=== PATIENT | male | born 1950 | race Caucasian/White ===

== ENCOUNTER 2018-03-10 09:31 | Outpatient (CLI) | payer MEDICARE, OTHER ==
[~2018-03-10 09:31] MED LIST: HYDR-569 PO
== END 2018-03-10 10:23 | disposition home or self-care (01) ==
LOC: ORTHO 09:31
PROVIDERS: ATTEND Nurse Practitioner Family
DX: S52.501A Unspecified fracture of the lower end of right radius, initial encounter for closed fracture (principal); F17.210 Nicotine dependence, cigarettes, uncomplicated; I10 Essential (primary) hypertension; Z59.0 Homelessness; Z88.0 Allergy status to penicillin; X58.XXXA Exposure to other specified factors, initial encounter; Y93.89 Activity, other specified; Y92.89 Other specified places as the place of occurrence of the external cause; Y99.8 Other external cause status
CPT/HCPCS: 99213; A4590; A6449

== ENCOUNTER 2018-03-21 14:42 | Outpatient (CLI) | payer MEDICARE, OTHER ==
[2018-03-21 15:09] VITALS: BP 131/92
== END 2018-03-21 15:45 | disposition home or self-care (01) ==
LOC: ORTHO 14:42
PROVIDERS: ATTEND Nurse Practitioner Family
DX: S52.501G Unspecified fracture of the lower end of right radius, subsequent encounter for closed fracture with delayed healing (principal); S50.819D Abrasion of unspecified forearm, subsequent encounter; F17.210 Nicotine dependence, cigarettes, uncomplicated; Z59.0 Homelessness; Z88.0 Allergy status to penicillin; X58.XXXD Exposure to other specified factors, subsequent encounter
CPT/HCPCS: 73110; 99214; A4590

== ENCOUNTER 2018-03-29 13:27 | Outpatient (CLI) | payer MEDICARE, OTHER ==
[~2018-03-29] VITALS: Ht 162.6 cm; Wt 94.6 kg
[2018-03-29 13:27] VITALS: BP 129/84
== END 2018-03-29 14:47 | disposition home or self-care (01) ==
LOC: ORTHO 13:27
PROVIDERS: ATTEND Nurse Practitioner Family
DX: S52.501G Unspecified fracture of the lower end of right radius, subsequent encounter for closed fracture with delayed healing (principal); M25.431 Effusion, right wrist; E78.00 Pure hypercholesterolemia, unspecified; F17.210 Nicotine dependence, cigarettes, uncomplicated; G89.29 Other chronic pain; I10 Essential (primary) hypertension; M10.9 Gout, unspecified; Z88.0 Allergy status to penicillin; X58.XXXD Exposure to other specified factors, subsequent encounter
CPT/HCPCS: 73110; 99215

== ENCOUNTER 2021-01-16 11:03 | Emergency (ER) | payer MEDICARE, OTHER ==
[~2021-01-16] VITALS: Ht 162.6 cm; Wt 84.1 kg
[~2021-01-16 11:03] MED LIST changes: +FOLI0.4T6 PO; -HYDR-569 PO; +KETO10TA2 PO; +LEVO750T46 PO; +LISI40TA13 PO; +MULT-1074 PO; +NICO-687 TD; +THIA100T70 PO
[2021-01-16 12:18] LABS: BASOPHILS # (AUTO) 0.1 X10'3 (0-0.2); BASOPHILS % (AUTO) 0.8 % (0-1); EOSINOPHILS # (AUTO) 0.2 X10'3 (0-0.9); EOSINOPHILS % (AUTO) 2.2 % (0-6); HEMATOCRIT 47.4 % (42.0-52.0); LYMPHOCYTES # (AUTO) 2.1 X10'3 (1.1-4.8); LYMPHOCYTES % (AUTO) 21.7 % (21-51); MEAN CORPUSCULAR HEMOGLOBIN 31.7 PG (27.0-31.0); MEAN CORPUSCULAR HGB CONC 33.7 g/dL (33.0-36.5); MEAN PLATELET VOLUME 8.7 FL (7.4-10.4); MONOCYTES # (AUTO) 0.9 X10'3 (0-0.9); MONOCYTES % (AUTO) 9.3 % (2-12); NEUTROPHILS # (AUTO) 6.2 X10'3 (1.8-7.7); PLATELET COUNT 321 X10'3 (140-440); RED BLOOD COUNT 5.04 X10'6 (4.70-6.10); RED CELL DISTRIBUTION WIDTH 14.1 % (11.5-14.5); WHITE BLOOD COUNT 9.4 X10'3 (4.5-11.0)
[2021-01-16 12:29] LABS: D-DIMER 2.26 MG/L FEU (0-0.50)
[2021-01-16 12:31] LABS: ALANINE AMINOTRANSFERASE 50 U/L (12-78); ALBUMIN 3.3 G/DL (3.4-5.0); ALBUMIN/GLOBULIN RATIO 0.6 (1.1-1.5); ALKALINE PHOSPHATASE 127 IU/L (46-116); ANION GAP 12 (8-16); ASPARTATE AMINO TRANSFERASE 37 U/L (10-37); BILIRUBIN,TOTAL 0.6 MG/DL (0.1-1.0); BLOOD UREA NITROGEN 14 MG/DL (7-18); BUN/CREATININE RATIO 13.5 (5.4-32.0); CALCIUM 9.5 MG/DL (8.5-10.1); CHLORIDE 102 MMOL/L (99-107); CREATININE 1.04 MG/DL (0.60-1.10); GLUCOSE 97 MG/DL (70-104); POTASSIUM 4.3 MMOL/L (3.5-5.1); SODIUM 137 MMOL/L (135-145); TOTAL CARBON DIOXIDE 22.7 MMOL/L (24-32); TOTAL PROTEIN 8.7 G/DL (6.4-8.2); eGFR 71 ML/MIN
[2021-01-16 12:39] LABS: PLATELET ESTIMATE NORMAL; TOTAL CELLS COUNTED 100
[2021-01-16] MEDS ORDERED: HYDROcodone/acetaminophen 10/325mg tab PO ONE (13:00)
[2021-01-16 13:27] VITALS: BP 150/95
== END 2021-01-16 13:17 | disposition home or self-care (01) ==
LOC: ER 11:04
DX: R07.81 Pleurodynia (principal); R05 Cough; R06.02 Shortness of breath; E78.00 Pure hypercholesterolemia, unspecified; I10 Essential (primary) hypertension; G89.29 Other chronic pain; M10.9 Gout, unspecified; F12.90 Cannabis use, unspecified, uncomplicated; F15.90 Other stimulant use, unspecified, uncomplicated; Z86.19 Personal history of other infectious and parasitic diseases; Z98.890 Other specified postprocedural states; Z72.89 Other problems related to lifestyle; Z88.0 Allergy status to penicillin; Z79.899 Other long term (current) drug therapy
CPT/HCPCS: 36415; 80053; 85007; 85025; 85379; 93005; 99284

== ENCOUNTER 2021-06-12 01:34 | Emergency (ER) | payer MEDICARE ==
[~2021-06-12] VITALS: Ht 162.6 cm; Wt 76.0 kg
[~2021-06-12 01:34] MED LIST changes: -FOLI0.4T6 PO; -LEVO750T46 PO; -LISI40TA13 PO
[2021-06-12 01:41] VITALS: BP 151/92
[2021-06-12] MEDS ORDERED: ketorolac trometh. 30mg/ml inj. IM ONE (02:00)
== END 2021-06-12 02:23 | disposition home or self-care (01) ==
LOC: ER 01:36
DX: M54.32 Sciatica, left side (principal); M79.604 Pain in right leg; M79.605 Pain in left leg; E78.00 Pure hypercholesterolemia, unspecified; I10 Essential (primary) hypertension; G89.29 Other chronic pain; M10.9 Gout, unspecified; F12.90 Cannabis use, unspecified, uncomplicated; F15.90 Other stimulant use, unspecified, uncomplicated; Z86.19 Personal history of other infectious and parasitic diseases; Z72.89 Other problems related to lifestyle; Z98.890 Other specified postprocedural states; Z88.0 Allergy status to penicillin; Z79.899 Other long term (current) drug therapy
CPT/HCPCS: 96372; 99283; J1885

== ENCOUNTER 2021-08-14 11:38 | Emergency (ER) | payer SELFPAY ==
[~2021-08-14] VITALS: Ht 162.6 cm; Wt 72.7 kg
[2021-08-14 11:55] VITALS: BP 209/117
[2021-08-14] MEDS ORDERED: ondansetron 4mg rapidly disintigrating tab PO ONE (13:20)
[2021-08-14] MEDS ORDERED: morphine 4 MG/ML inj SYRINge IM ONE (13:20)
[2021-08-14] MEDS ORDERED: ketorolac tromethamine 15mg/ml inj. IM ONE (13:20)
[2021-08-14] MEDS ORDERED: ORPH100T2 PO (13:38)
[2021-08-14] MEDS ORDERED: IBUP-1984 PO (13:38)
== END 2021-08-15 06:46 | disposition home or self-care (01) ==
LOC: ER 11:38
DX: M54.6 Pain in thoracic spine (principal); E78.00 Pure hypercholesterolemia, unspecified; I10 Essential (primary) hypertension; G89.29 Other chronic pain; M10.9 Gout, unspecified; F12.90 Cannabis use, unspecified, uncomplicated; F15.90 Other stimulant use, unspecified, uncomplicated; Z86.19 Personal history of other infectious and parasitic diseases; Z98.890 Other specified postprocedural states; Z72.89 Other problems related to lifestyle; Z88.0 Allergy status to penicillin; Z79.899 Other long term (current) drug therapy
CPT/HCPCS: 96372; 99284; J1885; J2270

== ENCOUNTER 2021-08-21 17:46 | Emergency (ER) | payer SELFPAY ==
[~2021-08-21] VITALS: Ht 162.6 cm; Wt 77.3 kg
[~2021-08-21 17:46] MED LIST changes: +ORPH100T2 PO
[2021-08-21 18:20] VITALS: BP 134/78
[2021-08-21] MEDS ORDERED: ONDA4TAB6 PO (19:54)
[2021-08-21] MEDS ORDERED: HYDR-3964 PO (19:54)
[2021-08-21] MEDS ORDERED: acetaminophen 325mg tablet PO ONE (20:00)
--- NOTE | 2021-08-21 20:50 | NUR ---
PT SEEN, TREATED AND D/C BY PROVIDER
== END 2021-08-21 20:52 | disposition home or self-care (01) ==
LOC: ER 17:46
DX: S22.42XA Multiple fractures of ribs, left side, initial encounter for closed fracture (principal); R07.81 Pleurodynia; M54.89 Other dorsalgia; E78.00 Pure hypercholesterolemia, unspecified; I10 Essential (primary) hypertension; G89.29 Other chronic pain; M10.9 Gout, unspecified; F12.90 Cannabis use, unspecified, uncomplicated; F15.90 Other stimulant use, unspecified, uncomplicated; Z86.19 Personal history of other infectious and parasitic diseases; Z72.89 Other problems related to lifestyle; Z88.0 Allergy status to penicillin; Z79.899 Other long term (current) drug therapy; X58.XXXA Exposure to other specified factors, initial encounter; Y93.89 Activity, other specified; Y92.89 Other specified places as the place of occurrence of the external cause; Y99.8 Other external cause status
CPT/HCPCS: 71250; 93005; 99284

== ENCOUNTER 2021-11-08 00:40 | Emergency (ER) | payer SELFPAY ==
[~2021-11-08 00:40] MED LIST changes: +ONDA4TAB6 PO
[2021-11-08] MEDS ORDERED: ipratropium/albuterol 3ml nebule NEB ONE (01:25)
[2021-11-08 01:47] VITALS: BP 132/169
[2021-11-08] MEDS ORDERED: INHA1INH2 INH (02:07)
[2021-11-08] MEDS ORDERED: ALBU18HF2 INH (02:07)
== END 2021-11-08 02:29 | disposition home or self-care (01) ==
LOC: ER 00:40
DX: R07.81 Pleurodynia (principal); J98.01 Acute bronchospasm; M54.6 Pain in thoracic spine; E78.00 Pure hypercholesterolemia, unspecified; I10 Essential (primary) hypertension; F12.90 Cannabis use, unspecified, uncomplicated; G89.29 Other chronic pain; Z86.19 Personal history of other infectious and parasitic diseases; F15.90 Other stimulant use, unspecified, uncomplicated; Z72.89 Other problems related to lifestyle; Z88.0 Allergy status to penicillin; Z87.81 Personal history of (healed) traumatic fracture; Z79.899 Other long term (current) drug therapy; W19.XXXA Unspecified fall, initial encounter; Y93.89 Activity, other specified; Y92.89 Other specified places as the place of occurrence of the external cause; Y99.8 Other external cause status
CPT/HCPCS: 71046; 94640; 94760; 99284

== ENCOUNTER 2022-04-16 22:10 | Emergency (ER) | payer MEDICARE, MEDICAID ==
[~2022-04-16] VITALS: Ht 162.6 cm; Wt 79.7 kg
[~2022-04-16 22:10] MED LIST changes: +ALBU18HF2 INH; +INHA1INH2 INH
[2022-04-17 01:04] VITALS: BP 137/87
[2022-04-17] MEDS ORDERED: acetaminophen 325mg tablet PO ONE (01:15)
[2022-04-17] MEDS ORDERED: HYDROcodone/acetaminophen 5mg/325mg tablet PO ONE (01:15)
[2022-04-17] MEDS ORDERED: ketorolac trometh inj. 60 MG/2 ML VIAL IM ONE (01:15)
== END 2022-04-17 02:30 | disposition home or self-care (01) ==
LOC: ER 22:11
DX: M54.41 Lumbago with sciatica, right side (principal); M54.42 Lumbago with sciatica, left side; E78.00 Pure hypercholesterolemia, unspecified; I10 Essential (primary) hypertension; G89.29 Other chronic pain; M10.9 Gout, unspecified; F12.90 Cannabis use, unspecified, uncomplicated; F15.90 Other stimulant use, unspecified, uncomplicated; Z72.89 Other problems related to lifestyle; Z88.0 Allergy status to penicillin; Z79.899 Other long term (current) drug therapy
CPT/HCPCS: 96372; 99284; J1885

== ENCOUNTER 2022-04-20 13:53 | Inpatient (IN) | payer MEDICARE, MEDICAID, OTHER ==
[~2022-04-20] VITALS: Ht 162.6 cm; Wt 73.0 kg
[2022-04-20] MEDS ORDERED: ringers solution, lacted 1,000 ML IV ONE (14:25)
[2022-04-20 14:44] LABS: BASOPHILS # (AUTO) 0.1 X10'3 (0-0.2); BASOPHILS % (AUTO) 0.3 % (0-1); EOSINOPHILS % (AUTO) 0 % (0-6); HEMATOCRIT 42.2 % (42.0-52.0); HEMOGLOBIN 13.9 g/dl (14.0-17.9); LYMPHOCYTES # (AUTO) 0.4 X10'3 (1.1-4.8); LYMPHOCYTES % (AUTO) 2.1 % (21-51); MEAN CORPUSCULAR HEMOGLOBIN 30.4 PG (27.0-31.0); MEAN CORPUSCULAR HGB CONC 32.9 g/dL (33.0-36.5); MEAN CORPUSCULAR VOLUME 92.5 FL (78-98); MEAN PLATELET VOLUME 8.8 FL (7.4-10.4); MONOCYTES # (AUTO) 0.9 X10'3 (0-0.9); NEUTROPHILS # (AUTO) 17.1 X10'3 (1.8-7.7); NEUTROPHILS % (AUTO) 92.6 % (42-75); PLATELET COUNT 210 X10'3 (140-440); RED BLOOD COUNT 4.56 X10'6 (4.70-6.10); RED CELL DISTRIBUTION WIDTH 15.2 % (11.5-14.5); WHITE BLOOD COUNT 18.5 X10'3 (4.5-11.0)
[2022-04-20 15:00] LABS: ALANINE AMINOTRANSFERASE 27 U/L (12-78); ALBUMIN 2.9 G/DL (3.4-5.0); ALBUMIN/GLOBULIN RATIO 0.6 (1.1-1.5); ALKALINE PHOSPHATASE 98 IU/L (46-116); ANION GAP 15 (8-16); ASPARTATE AMINO TRANSFERASE 30 U/L (10-37); BLOOD UREA NITROGEN 30 MG/DL (7-18); BUN/CREATININE RATIO 17.3 (5.4-32.0); CALCIUM 8.6 MG/DL (8.5-10.1); CHLORIDE 106 MMOL/L (99-107); CREATININE 1.73 MG/DL (0.60-1.10); GLUCOSE 125 MG/DL (70-104); POTASSIUM 3.9 MMOL/L (3.5-5.1); SODIUM 144 MMOL/L (135-145); TOTAL CARBON DIOXIDE 22.9 MMOL/L (24-32); TOTAL PROTEIN 7.4 G/DL (6.4-8.2); eGFR 39 ML/MIN
[2022-04-20 15:02] LABS: CREATINE KINASE 168 U/L (39-308); ETHANOL < 0.010 GM/DL (0.0-0.010)
[2022-04-20] MEDS ORDERED: CefTRIAXone 2gm/NS 100ml IVPB 100 ML IV ONE (15:20)
[2022-04-20] MEDS ORDERED: azithromycin/NS 500mg/250ml 250 ML IV ONE (15:20)
[2022-04-20] MEDS ORDERED: HYDROmorphone/PF 0.2 MG/ML SYRINGE IV PRN (15:40)
[2022-04-20] MEDS ORDERED: LORazepam 2 mg/ml vial IV PRN (15:40)
[2022-04-20] MEDS ORDERED: potassium CL 10mEq/100ml bag 100 ML IV PRN (15:40)
[2022-04-20] MEDS ORDERED: ondansetron/PF 4mg/2ml inj IV PRN (15:40)
[2022-04-20] MEDS ORDERED: ipratropium/albuterol 3ml nebule NEB ONE (15:40)
[2022-04-20] MEDS ORDERED: magnesium hydroxide 30ml (MOM) UD suspension PO PRN (15:40)
[2022-04-20] MEDS ORDERED: haloperidol lactate 5mg/ml inj IM PRN (15:40)
[2022-04-20] MEDS ORDERED: acetaminophen 650mg rectal suppository RC PRN (15:40)
[2022-04-20] MEDS ORDERED: haloperidol 5mg tablet PO PRN (15:40)
[2022-04-20] MEDS ORDERED: LORazepam 1 MG tablet PO PRN (15:40)
[2022-04-20] MEDS ORDERED: dextrose 50%-water 50ml dispensing syringe IV PRN (15:40)
[2022-04-20] MEDS ORDERED: bisacodyl 10mg suppository rectal RC PRN (15:40)
[2022-04-20] MEDS ORDERED: magnesium 4gm in 100ml NS 100 ML IV PRN (15:40)
[2022-04-20] MEDS ORDERED: magnesium Cl slow-release 64mg tablet PO PRN (15:40)
[2022-04-20] MEDS ORDERED: mag hydrox/Alum hydrox/simeth 30ml oral suspension PO PRN (15:40)
[2022-04-20] MEDS ORDERED: acetaminophen 325mg tablet PO PRN ×2 (15:40)
[2022-04-20] MEDS ORDERED: heparin 10,000 units/1 ML INJ IV ONE (15:40)
[2022-04-20] MEDS ORDERED: HYDROcodone/acetaminophen 5mg/325mg tablet PO PRN (15:40)
[2022-04-20] MEDS ORDERED: POTASSIUM BICARB 20meq eff tab 20 MEQ TABLET.EFF PO PRN ×2 (15:40)
[2022-04-20] MEDS ORDERED: magnesium 2GM in 50ml NS 50 ML IV PRN (15:40)
[2022-04-20] MEDS ORDERED: HYDROmorphone inj. 0.5 MG/0.5 ML DISP.SYRIN IV PRN (15:40)
[2022-04-20] MEDS ORDERED: ondansetron 4mg rapidly disintigrating tab PO PRN (15:40)
[2022-04-20] MEDS: heparin 25,000 UNIT/250ml bag 250 ML IV SCH (16:14)
[2022-04-20] MEDS: normal saline 1000ml 1,000 ML IV SCH (16:18)
[2022-04-20 17:26] LABS: APTT > 139 SECONDS (22-32)
[2022-04-20] MEDS: thiamine 100mg tablet PO SCH (18:24)
[2022-04-20] MEDS: folic acid 1mg tablet PO SCH (18:24)
[2022-04-20] MEDS: multivitamins, therapeutics tablet PO SCH (18:24)
[2022-04-20] MEDS: K and/or MAG REPLACEMENT MC SCH (19:58)
[2022-04-20] MEDS: docusate sod 100mg capsule PO SCH (20:00)
[2022-04-20] MEDS ORDERED: temazepam 15mg capsule PO PRN (21:00)
[2022-04-20 21:29] LABS: CLARITY,URINE CLEAR (Clear); COLOR,URINE YELLOW (Yellow); GLUCOSE, URINE 100 mg/dl (Neg); KETONES,URINE TRACE mg/dl (Neg); LEUKOCYTE ESTERASE ,URINE NEGATIVE (Neg); NITRITES, URINE NEGATIVE (Neg); OCCULT BLOOD,URINE SMALL (Neg); PH,URINE 5.5 (4.8-8.0); PROTEIN,URINE TRACE mg/dl (Neg); UROBILINOGEN,URINE 0.2 E.U/dL (0.2-1.0)
[2022-04-20 21:30] LABS: URINE AMPHETAMINE SCREEN POSITIVE (Neg); URINE BARBITUATE SCREEN NEGATIVE (Neg); URINE BENZODIAZEPINES SCREEN NEGATIVE (Neg); URINE CANNABINOID SCREEN NEGATIVE (Neg); URINE COCAINE SCREEN NEGATIVE (Neg); URINE METHADONE SCREEN POSITIVE (Neg); URINE OPIATE SCREEN NEGATIVE (Neg); URINE PHENCYCLIDINE SCREEN NEGATIVE (Neg)
[2022-04-20 21:32] LABS: UA COLLECTION TYPE URINAL
[2022-04-20 21:39] LABS: WBC,URINE 0-4 /HPF (0-4)
[2022-04-20 21:40] LABS: BACTERIA,URINE FEW /HPF (Neg); FINE GRANULAR CAST 0-3 /LPF (NEGATIVE); HYALINE CASTS 0-3 /LPF (NEGATIVE); RBC,URINE 0-2 /HPF (0-2); SQUAMOUS EPITHELIAL CELL,UR FEW /LPF (FEW)
[2022-04-20] MEDS: heparin 10,000 units/1 ML INJ IV PRN (22:44)
[2022-04-21] MEDS: normal saline 1000ml 1,000 ML IV SCH ×3 (01:39→21:02)
[2022-04-21 04:55] LABS: BASOPHILS % (AUTO) 0.1 % (0-1); EOSINOPHILS % (AUTO) 0.1 % (0-6); HEMOGLOBIN 12.9 g/dl (14.0-17.9); LYMPHOCYTES # (AUTO) 1.1 X10'3 (1.1-4.8); LYMPHOCYTES % (AUTO) 6.7 % (21-51); MEAN CORPUSCULAR HEMOGLOBIN 30.4 PG (27.0-31.0); MEAN CORPUSCULAR HGB CONC 33.1 g/dL (33.0-36.5); MEAN CORPUSCULAR VOLUME 91.9 FL (78-98); MEAN PLATELET VOLUME 9.2 FL (7.4-10.4); MONOCYTES # (AUTO) 0.9 X10'3 (0-0.9); MONOCYTES % (AUTO) 5.4 % (2-12); NEUTROPHILS % (AUTO) 87.7 % (42-75); PLATELET COUNT 183 X10'3 (140-440); RED BLOOD COUNT 4.24 X10'6 (4.70-6.10)
[2022-04-21 05:13] LABS: ALANINE AMINOTRANSFERASE 19 U/L (12-78); ALBUMIN 2.5 G/DL (3.4-5.0); ALBUMIN/GLOBULIN RATIO 0.6 (1.1-1.5); ALKALINE PHOSPHATASE 88 IU/L (46-116); ANION GAP 11 (8-16); ASPARTATE AMINO TRANSFERASE 25 U/L (10-37); BILIRUBIN,TOTAL 0.6 MG/DL (0.1-1.0); BLOOD UREA NITROGEN 23 MG/DL (7-18); BUN/CREATININE RATIO 22.5 (5.4-32.0); CALCIUM 8.6 MG/DL (8.5-10.1); CHLORIDE 108 MMOL/L (99-107); CHOL/HDL RATIO 2.3 (0.00-4.99); CHOLESTEROL 96 MG/DL (0-200); CREATININE 1.02 MG/DL (0.60-1.10); GLUCOSE 95 MG/DL (70-104); HDL CHOLESTEROL 41 MG/DL (35-60); LDL CHOLESTEROL 33 MG/DL (50-100); MAGNESIUM 2.1 MG/DL (1.5-2.4); POTASSIUM 3.9 MMOL/L (3.5-5.1); SODIUM 143 MMOL/L (135-145); TOTAL CARBON DIOXIDE 24.1 MMOL/L (24-32); TOTAL PROTEIN 6.7 G/DL (6.4-8.2); TRIGLYCERIDES 63 MG/DL (20-135); eGFR 72 ML/MIN
[2022-04-21] MEDS: heparin 10,000 units/1 ML INJ IV PRN ×2 (05:32→12:52)
--- NOTE | 2022-04-21 06:30 | NUR ---
first contac with pt, found sleeping on right side. vss. awaiting bed assignment, no distress noted.
[2022-04-21] MEDS: ipratropium/albuterol 3ml nebule NEB PRN (07:45)
[2022-04-21] MEDS ORDERED: NO HOME MEDS (07:51)
[2022-04-21] MEDS: K and/or MAG REPLACEMENT MC SCH ×2 (08:00→20:00)
[2022-04-21] MEDS: docusate sod 100mg capsule PO SCH ×2 (08:00→20:00)
--- NOTE | 2022-04-21 08:30 | NUR ---
breakfast tray provided for pt. pt repositioned in bed, linens straightened. tolerated food/pills well.
[2022-04-21] MEDS: folic acid 1mg tablet PO SCH (08:36)
[2022-04-21] MEDS: cefTRIAXone 1g/NS 100ml IVPB 100 ML IV SCH (08:36)
[2022-04-21] MEDS: thiamine 100mg tablet PO SCH (08:36)
[2022-04-21] MEDS: multivitamins, therapeutics tablet PO SCH (08:37)
[2022-04-21] MEDS: azithromycin 250mg tablet PO SCH (08:37)
--- NOTE | 2022-04-21 12:56 | NUR ---
telephone report to LISSETTE العلي
[2022-04-21 15:00] VITALS: BP 147/84
--- NOTE | 2022-04-21 15:30 | NUR ---
received report, arrived to floor, assumed care. Pt on Heparin drip as ordered, running at 1150 u Addendum: 04/21/22 at 1729 by Patricio Dawson RN units per hour. Alert and Oriented, call light in reach.
[2022-04-21 18:00] VITALS: BP 127/66
[2022-04-21] MEDS: heparin 25,000 UNIT/250ml bag 250 ML IV SCH (20:56)
[2022-04-21 22:00] VITALS: BP 169/96
[2022-04-22 02:00] VITALS: BP 171/94
[2022-04-22 05:49] LABS: BASOPHILS # (AUTO) 0.1 X10'3 (0-0.2); BASOPHILS % (AUTO) 0.6 % (0-1); EOSINOPHILS # (AUTO) 0.2 X10'3 (0-0.9); EOSINOPHILS % (AUTO) 2.1 % (0-6); HEMATOCRIT 39.4 % (42.0-52.0); HEMOGLOBIN 13.1 g/dl (14.0-17.9); LYMPHOCYTES # (AUTO) 1.5 X10'3 (1.1-4.8); LYMPHOCYTES % (AUTO) 16.9 % (21-51); MEAN CORPUSCULAR HGB CONC 33.4 g/dL (33.0-36.5); MEAN CORPUSCULAR VOLUME 92.8 FL (78-98); MEAN PLATELET VOLUME 9.4 FL (7.4-10.4); MONOCYTES # (AUTO) 0.7 X10'3 (0-0.9); MONOCYTES % (AUTO) 7.3 % (2-12); NEUTROPHILS # (AUTO) 6.5 X10'3 (1.8-7.7); NEUTROPHILS % (AUTO) 73.1 % (42-75); PLATELET COUNT 195 X10'3 (140-440); RED BLOOD COUNT 4.24 X10'6 (4.70-6.10); WHITE BLOOD COUNT 8.9 X10'3 (4.5-11.0)
[2022-04-22 06:00] VITALS: BP 161/98
[2022-04-22 06:23] LABS: ALANINE AMINOTRANSFERASE 18 U/L (12-78); ALBUMIN 2.2 G/DL (3.4-5.0); ALBUMIN/GLOBULIN RATIO 0.5 (1.1-1.5); ALKALINE PHOSPHATASE 80 IU/L (46-116); ANION GAP 9 (8-16); ASPARTATE AMINO TRANSFERASE 28 U/L (10-37); BILIRUBIN,TOTAL 0.4 MG/DL (0.1-1.0); BLOOD UREA NITROGEN 21 MG/DL (7-18); BUN/CREATININE RATIO 28.8 (5.4-32.0); CALCIUM 8.9 MG/DL (8.5-10.1); CHLORIDE 107 MMOL/L (99-107); CREATININE 0.73 MG/DL (0.60-1.10); GLUCOSE 88 MG/DL (70-104); MAGNESIUM 1.8 MG/DL (1.5-2.4); POTASSIUM 3.6 MMOL/L (3.5-5.1); SODIUM 140 MMOL/L (135-145); TOTAL CARBON DIOXIDE 23.8 MMOL/L (24-32); TOTAL PROTEIN 6.5 G/DL (6.4-8.2); eGFR > 90 ML/MIN
[2022-04-22] MEDS: normal saline 1000ml 1,000 ML IV SCH ×2 (08:00→17:40)
[2022-04-22] MEDS: ipratropium/albuterol 3ml nebule NEB PRN (08:19)
[2022-04-22] MEDS: cefTRIAXone 1g/NS 100ml IVPB 100 ML IV SCH (10:58)
[2022-04-22] MEDS: multivitamins, therapeutics tablet PO SCH (10:58)
[2022-04-22] MEDS: thiamine 100mg tablet PO SCH (10:58)
[2022-04-22] MEDS: lisinopril 20mg tablet PO SCH (10:59)
[2022-04-22 11:00] VITALS: BP 142/62
[2022-04-22] MEDS: azithromycin 250mg tablet PO SCH (11:00)
[2022-04-22] MEDS: docusate sod 100mg capsule PO SCH ×2 (11:02→20:00)
[2022-04-22] MEDS ORDERED: LISI40TA13 PO (11:06)
[2022-04-22] MEDS ORDERED: THIA50TA10 PO (11:06)
[2022-04-22] MEDS ORDERED: FOLI0.4T6 PO (11:06)
[2022-04-22] MEDS ORDERED: IPRA4AER IH (11:06)
[2022-04-22] MEDS ORDERED: MULT-25 PO (11:06)
[2022-04-22] MEDS ORDERED: LEVO500T90 PO (11:06)
[2022-04-22] MEDS: folic acid 1mg tablet PO SCH (11:11)
[2022-04-22 15:53] VITALS: BP 138/82
[2022-04-22] MEDS: K and/or MAG REPLACEMENT MC SCH ×2 (16:23→20:06)
[2022-04-22 18:00] VITALS: BP 177/96
[2022-04-22 22:00] VITALS: BP 160/79
[2022-04-23 02:00] VITALS: BP 174/97
[2022-04-23] MEDS: normal saline 1000ml 1,000 ML IV SCH ×3 (04:11→23:40)
[2022-04-23] MEDS: heparin 25,000 UNIT/250ml bag 250 ML IV SCH (04:28)
[2022-04-23] MEDS: heparin 10,000 units/1 ML INJ IV PRN (04:29)
[2022-04-23 06:00] VITALS: BP 177/98
[2022-04-23 06:20] LABS: BASOPHILS % (AUTO) 0.6 % (0-1); EOSINOPHILS # (AUTO) 0.2 X10'3 (0-0.9); EOSINOPHILS % (AUTO) 3.1 % (0-6); HEMATOCRIT 41.8 % (42.0-52.0); LYMPHOCYTES # (AUTO) 1.7 X10'3 (1.1-4.8); LYMPHOCYTES % (AUTO) 24.2 % (21-51); MEAN CORPUSCULAR HEMOGLOBIN 31.1 PG (27.0-31.0); MEAN CORPUSCULAR HGB CONC 33.6 g/dL (33.0-36.5); MEAN CORPUSCULAR VOLUME 92.6 FL (78-98); MEAN PLATELET VOLUME 9.2 FL (7.4-10.4); MONOCYTES # (AUTO) 0.6 X10'3 (0-0.9); MONOCYTES % (AUTO) 7.9 % (2-12); NEUTROPHILS # (AUTO) 4.5 X10'3 (1.8-7.7); NEUTROPHILS % (AUTO) 64.2 % (42-75); PLATELET COUNT 213 X10'3 (140-440); RED BLOOD COUNT 4.51 X10'6 (4.70-6.10); RED CELL DISTRIBUTION WIDTH 14.8 % (11.5-14.5)
[2022-04-23 06:40] LABS: ALANINE AMINOTRANSFERASE 28 U/L (12-78); ALBUMIN 2.4 G/DL (3.4-5.0); ALBUMIN/GLOBULIN RATIO 0.5 (1.1-1.5); ALKALINE PHOSPHATASE 86 IU/L (46-116); ANION GAP 9 (8-16); ASPARTATE AMINO TRANSFERASE 35 U/L (10-37); BILIRUBIN,TOTAL 0.4 MG/DL (0.1-1.0); BLOOD UREA NITROGEN 14 MG/DL (7-18); BUN/CREATININE RATIO 17.1 (5.4-32.0); CALCIUM 8.8 MG/DL (8.5-10.1); CHLORIDE 101 MMOL/L (99-107); CREATININE 0.82 MG/DL (0.60-1.10); GLUCOSE 83 MG/DL (70-104); MAGNESIUM 1.5 MG/DL (1.5-2.4); POTASSIUM 3.5 MMOL/L (3.5-5.1); SODIUM 140 MMOL/L (135-145); TOTAL CARBON DIOXIDE 29.8 MMOL/L (24-32); eGFR > 90 ML/MIN
[2022-04-23] MEDS: folic acid 1mg tablet PO SCH (07:51)
[2022-04-23] MEDS: thiamine 100mg tablet PO SCH (07:51)
[2022-04-23] MEDS: multivitamins, therapeutics tablet PO SCH (07:51)
[2022-04-23] MEDS: azithromycin 250mg tablet PO SCH (07:51)
[2022-04-23] MEDS: lisinopril 20mg tablet PO SCH (07:52)
[2022-04-23] MEDS: docusate sod 100mg capsule PO SCH ×2 (08:00→20:00)
[2022-04-23] MEDS: cefTRIAXone 1g/NS 100ml IVPB 100 ML IV SCH (08:00)
[2022-04-23] MEDS: K and/or MAG REPLACEMENT MC SCH ×2 (08:00→20:00)
[2022-04-23] MEDS: ipratropium/albuterol 3ml nebule NEB PRN (08:26)
--- NOTE | 2022-04-23 09:35 | NUR ---
Restraints/Seclusion/Emergency Medication:[] Therapeutic Interventions Offered:[] Response to Intervention:[] Addendum: 04/23/22 at 0936 by Zeynep Quintanilla RN Patient in room [place] [id number]. I have received report from Jatinder and had the opportunity to ask questions and assume patient care.
--- NOTE | 2022-04-23 09:36 | NUR ---
Dr. Boothe ordered Heparin D/C
[2022-04-23 11:00] VITALS: BP 157/82
[2022-04-23 15:00] VITALS: BP 163/105
[2022-04-23 18:00] VITALS: BP 142/88
[2022-04-23] MEDS: HYDROcodone/acetaminophen 10/325mg tab PO PRN (20:55)
[2022-04-23 22:00] VITALS: BP 152/78
[2022-04-24 02:00] VITALS: BP 180/111
[2022-04-24] MEDS: normal saline 1000ml 1,000 ML IV SCH (02:36)
[2022-04-24 04:00] VITALS: BP 130/76
--- NOTE | 2022-04-24 04:18 | NUR ---
Patient BP 0200 AM 180/111, P 111, rechecked it at 0400 AM, it was 130/76, P 78, SaO2 97 % on 2 LPM O2 without pain.
[2022-04-24 06:00] VITALS: BP 168/83
[2022-04-24 06:32] LABS: ALANINE AMINOTRANSFERASE 29 U/L (12-78); ALBUMIN 2.4 G/DL (3.4-5.0); ALBUMIN/GLOBULIN RATIO 0.5 (1.1-1.5); ALKALINE PHOSPHATASE 86 IU/L (46-116); ANION GAP 11 (8-16); ASPARTATE AMINO TRANSFERASE 35 U/L (10-37); BILIRUBIN,TOTAL 0.4 MG/DL (0.1-1.0); BLOOD UREA NITROGEN 14 MG/DL (7-18); BUN/CREATININE RATIO 15.7 (5.4-32.0); CALCIUM 8.9 MG/DL (8.5-10.1); CHLORIDE 100 MMOL/L (99-107); CREATININE 0.89 MG/DL (0.60-1.10); GLUCOSE 79 MG/DL (70-104); MAGNESIUM 1.6 MG/DL (1.5-2.4); POTASSIUM 3.3 MMOL/L (3.5-5.1); SODIUM 143 MMOL/L (135-145); TOTAL CARBON DIOXIDE 32.3 MMOL/L (24-32); TOTAL PROTEIN 6.9 G/DL (6.4-8.2); eGFR 85 ML/MIN
--- NOTE | 2022-04-24 06:37 | NUR ---
Patient in room PCU 3026. I have received report from Mehul and Chintan and had the opportunity to ask questions and assume patient care.
[2022-04-24 06:43] LABS: BASOPHILS % (AUTO) 0.6 % (0-1); EOSINOPHILS # (AUTO) 0.3 X10'3 (0-0.9); EOSINOPHILS % (AUTO) 3.5 % (0-6); HEMATOCRIT 44.3 % (42.0-52.0); HEMOGLOBIN 14.8 g/dl (14.0-17.9); LYMPHOCYTES # (AUTO) 1.4 X10'3 (1.1-4.8); LYMPHOCYTES % (AUTO) 19.1 % (21-51); MEAN CORPUSCULAR HEMOGLOBIN 30.2 PG (27.0-31.0); MEAN CORPUSCULAR HGB CONC 33.3 g/dL (33.0-36.5); MEAN CORPUSCULAR VOLUME 90.8 FL (78-98); MEAN PLATELET VOLUME 9.6 FL (7.4-10.4); MONOCYTES # (AUTO) 0.8 X10'3 (0-0.9); MONOCYTES % (AUTO) 11.3 % (2-12); NEUTROPHILS # (AUTO) 4.8 X10'3 (1.8-7.7); NEUTROPHILS % (AUTO) 65.5 % (42-75); PLATELET COUNT 252 X10'3 (140-440); RED BLOOD COUNT 4.88 X10'6 (4.70-6.10); RED CELL DISTRIBUTION WIDTH 14.5 % (11.5-14.5); WHITE BLOOD COUNT 7.3 X10'3 (4.5-11.0)
[2022-04-24] MEDS: multivitamins, therapeutics tablet PO SCH (08:00)
[2022-04-24] MEDS: K and/or MAG REPLACEMENT MC SCH (08:00)
[2022-04-24] MEDS: cefTRIAXone 1g/NS 100ml IVPB 100 ML IV SCH (08:00)
[2022-04-24] MEDS: docusate sod 100mg capsule PO SCH (08:00)
[2022-04-24] MEDS: lisinopril 20mg tablet PO SCH (08:00)
[2022-04-24] MEDS ORDERED: FURO40TA4 PO (08:17)
[2022-04-24] MEDS ORDERED: LABE100T5 PO (08:18)
[2022-04-24] MEDS ORDERED: labetalol 100mg tablet PO SCH (08:20)
--- NOTE | 2022-04-24 10:05 | NUR ---
Initial: Pt admit for left sided PNA, tachycardia, type II DC, and CISCO. Per physician notes pt with EtOH hx, currently receiving routine Thiamine, Folic acid, and MVI. Pt on a heart healthy diet and eating well, documented with 100% PO intake meeting estimated nutrient needs. Recommend liberalizing to regular diet in view of lipid panel WNL with the exception of low LDL. LBM 04/23. No nutrition intervention implemented at this time. Will continue to follow. Recommendations: 1) Liberalize to regular diet; lipid panel WNL except low LDL 2) Monitor need for additional food for satiety 3) Continue routine Thiamine, Folic acid, and MVI given EtOH hx 4) Routine bowel care 5) Scaled weight this admit; subsequent weekly scaled weights Addendum: 04/24/22 at [address] Amended: Links added.
[2022-04-24] MEDS: azithromycin 250mg tablet PO SCH (10:08)
[2022-04-24] MEDS: thiamine 100mg tablet PO SCH (10:08)
[2022-04-24] MEDS: folic acid 1mg tablet PO SCH (10:09)
[2022-04-24] MEDS: HYDROcodone/acetaminophen 10/325mg tab PO PRN (10:10)
--- NOTE | 2022-04-24 11:53 | NUR ---
PAGER ID: [phone] MESSAGE: [id number] Brandon Boone does not qualify for home O2. He walked 300' and stayed above 90% SpO2. FYI He is trying to refuse discharge again. Zeynep MCLAUGHLIN [phone]
[2022-04-24] MEDS ORDERED: magnesium 4gm in 100ml NS 100 ML IV PRN (12:00)
[2022-04-24] MEDS ORDERED: magnesium Cl slow-release 64mg tablet PO PRN (12:00)
[2022-04-24] MEDS ORDERED: POTASSIUM BICARB 20meq eff tab 20 MEQ TABLET.EFF PO PRN ×2 (12:00)
[2022-04-24] MEDS ORDERED: magnesium 2GM in 50ml NS 50 ML IV PRN (12:00)
[2022-04-24] MEDS ORDERED: potassium CL 10mEq/100ml bag 100 ML IV PRN (12:00)
[2022-04-24 13:48] VITALS: BP 163/103
--- NOTE | 2022-04-24 16:00 | NUR ---
Patient discharge, IV removed answered all questions re discharge packet.
[2022-04-24] MEDS ORDERED: K and/or MAG REPLACEMENT MC SCH (20:00)
== END 2022-04-24 15:24 | disposition home or self-care (01) | DRG 871 ==
LOC: ER 13:53 → ED HOLD 15:48 → PCU 3S 04-21 13:13
PROVIDERS: ADMIT Family Medicine; ATTEND Family Medicine
DX: A41.9 Sepsis, unspecified organism (principal); J18.9 Pneumonia, unspecified organism; N17.0 Acute kidney failure with tubular necrosis; J96.01 Acute respiratory failure with hypoxia; I21.A1 Myocardial infarction type 2; E86.0 Dehydration; I50.9 Heart failure, unspecified; E78.00 Pure hypercholesterolemia, unspecified; I11.0 Hypertensive heart disease with heart failure; Z20.822 Contact with and (suspected) exposure to COVID-19; F10.20 Alcohol dependence, uncomplicated; Y90.9 Presence of alcohol in blood, level not specified; Z71.6 Tobacco abuse counseling; Z79.899 Other long term (current) drug therapy; Z59.00 Homelessness unspecified; Z88.0 Allergy status to penicillin; X30.XXXA Exposure to excessive natural heat, initial encounter; Y93.89 Activity, other specified; Y92.89 Other specified places as the place of occurrence of the external cause; Y99.8 Other external cause status; Z72.0 Tobacco use
CPT/HCPCS: 36415; 71045; 80053; 80061; 80305; 80320; 81001; 82550; 82948; 83605; 83735; 83880; 84145; 84484; 85025; 85610; 85730; 87040; 87635; 94640; 94760; 97116; 97161; 97530; 99285; A4349; A5200; A6449; G0378; J0456; J0696; J1644; J7030; J7040; J7120

== ENCOUNTER 2022-05-10 16:35 | Emergency (ER) | payer MEDICAID, MEDICARE, OTHER ==
[~2022-05-10] VITALS: Ht 162.6 cm; Wt 72.7 kg
[~2022-05-10 16:35] MED LIST changes: -ALBU18HF2 INH; +FOLI0.4T6 PO; +FURO40TA4 PO; -INHA1INH2 INH; +IPRA4AER IH; -KETO10TA2 PO; +LABE100T5 PO; +LISI40TA13 PO; -MULT-1074 PO; +MULT-25 PO; -NICO-687 TD; -ONDA4TAB6 PO; -ORPH100T2 PO; -THIA100T70 PO; +THIA50TA10 PO
[2022-05-10 16:42] VITALS: BP 137/112
[2022-05-10] MEDS ORDERED: morphine 4 MG/ML inj SYRINge IM ONE (20:30)
[2022-05-10] MEDS ORDERED: ketorolac tromethamine 15mg/ml inj. IM ONE (20:30)
[2022-05-10] MEDS ORDERED: ondansetron 4mg rapidly disintigrating tab PO ONE (20:30)
== END 2022-05-10 21:31 | disposition home or self-care (01) ==
LOC: ER 16:36
DX: M54.50 Low back pain, unspecified (principal); I11.0 Hypertensive heart disease with heart failure; I50.9 Heart failure, unspecified; J44.9 Chronic obstructive pulmonary disease, unspecified; E78.00 Pure hypercholesterolemia, unspecified; G89.29 Other chronic pain; M10.9 Gout, unspecified; F12.90 Cannabis use, unspecified, uncomplicated; F15.90 Other stimulant use, unspecified, uncomplicated; Z72.89 Other problems related to lifestyle; Z88.0 Allergy status to penicillin; Z79.899 Other long term (current) drug therapy; Z86.19 Personal history of other infectious and parasitic diseases
CPT/HCPCS: 96372; 99284; J1885; J2270

== ENCOUNTER 2022-05-12 00:03 | Emergency (ER) | payer MEDICARE, OTHER ==
[~2022-05-12] VITALS: Ht 162.6 cm; Wt 72.7 kg
[~2022-05-12 00:03] MED LIST changes: -LABE100T5 PO; +LABE100T8 PO
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
[2022-05-12] MEDS ORDERED: ondansetron 4mg rapidly disintigrating tab PO ONE (07:25)
[2022-05-12] MEDS ORDERED: morphine 4 MG/ML inj SYRINge IM ONE (07:25)
[2022-05-12] MEDS ORDERED: ketorolac trometh. 30mg/ml inj. IM ONE (07:25)
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
[2022-05-12 08:19] VITALS: BP 147/83
== END 2022-05-12 08:40 | disposition home or self-care (01) ==
LOC: ER 00:04
DX: S33.5XXA Sprain of ligaments of lumbar spine, initial encounter (principal); I11.0 Hypertensive heart disease with heart failure; I50.9 Heart failure, unspecified; J44.9 Chronic obstructive pulmonary disease, unspecified; G89.29 Other chronic pain; M54.50 Low back pain, unspecified; F12.90 Cannabis use, unspecified, uncomplicated; F15.20 Other stimulant dependence, uncomplicated; Z88.0 Allergy status to penicillin; Z59.00 Homelessness unspecified; X58.XXXA Exposure to other specified factors, initial encounter; Y93.89 Activity, other specified; Y92.89 Other specified places as the place of occurrence of the external cause; Y99.8 Other external cause status
CPT/HCPCS: 93005; 96372; 99284; J1885; J2270

== ENCOUNTER 2022-06-25 01:10 | Emergency (ER) | payer SELFPAY ==
[~2022-06-25] VITALS: Ht 162.6 cm; Wt 72.7 kg
[~2022-06-25 01:10] MED LIST changes: -FOLI0.4T6 PO; -FURO40TA4 PO; -IPRA4AER IH; -LISI40TA13 PO
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
[2022-06-25 05:18] VITALS: BP 178/98
== END 2022-06-25 05:21 | disposition home or self-care (01) ==
LOC: ER 01:11
DX: M54.9 Dorsalgia, unspecified (principal); R53.1 Weakness; I11.0 Hypertensive heart disease with heart failure; I10 Essential (primary) hypertension; J44.9 Chronic obstructive pulmonary disease, unspecified; G89.29 Other chronic pain; F12.10 Cannabis abuse, uncomplicated; F15.10 Other stimulant abuse, uncomplicated; Z59.00 Homelessness unspecified; W01.0XXA Fall on same level from slipping, tripping and stumbling without subsequent striking against object, initial encounter; Y93.89 Activity, other specified; Y92.89 Other specified places as the place of occurrence of the external cause; Y99.8 Other external cause status
CPT/HCPCS: 99283

== ENCOUNTER 2022-08-07 22:24 | Emergency (ER) | payer MEDICARE, MEDICAID ==
[~2022-08-07] VITALS: Ht 154.9 cm; Wt 72.7 kg
[2022-08-07 22:30] VITALS: BP 132/98
[2022-08-07] MEDS ORDERED: acetaminophen 325mg tablet PO ONE (23:35)
[2022-08-07] MEDS ORDERED: cyclobenzaprine 10mg tablet PO ONE (23:35)
[2022-08-07] MEDS ORDERED: LIDOcaine 5% patch TP ONE (23:35)
== END 2022-08-08 00:39 | disposition home or self-care (01) ==
LOC: ER 22:24
DX: M54.50 Low back pain, unspecified (principal); G89.29 Other chronic pain; I11.0 Hypertensive heart disease with heart failure; I50.9 Heart failure, unspecified; E78.00 Pure hypercholesterolemia, unspecified; J44.9 Chronic obstructive pulmonary disease, unspecified; M10.9 Gout, unspecified; F12.90 Cannabis use, unspecified, uncomplicated; F15.90 Other stimulant use, unspecified, uncomplicated; Z86.19 Personal history of other infectious and parasitic diseases; Z98.890 Other specified postprocedural states; Z72.89 Other problems related to lifestyle; Z59.00 Homelessness unspecified; Z88.0 Allergy status to penicillin; Z79.899 Other long term (current) drug therapy
CPT/HCPCS: 72100; 99284

== ENCOUNTER 2022-10-16 07:14 | Emergency (ER) | payer MEDICARE, MEDICAID ==
[~2022-10-16] VITALS: Ht 149.9 cm; Wt 68.0 kg
[2022-10-16 07:22] VITALS: BP 133/80
[2022-10-16] MEDS ORDERED: IBUP-1984 PO (09:09)
[2022-10-16] MEDS ORDERED: ketorolac tromethamine 15mg/ml inj. IM ONE (09:10)
== END 2022-10-16 10:00 | disposition home or self-care (01) ==
LOC: ER 07:14
DX: M25.511 Pain in right shoulder (principal); M54.31 Sciatica, right side; I11.9 Hypertensive heart disease without heart failure; E78.00 Pure hypercholesterolemia, unspecified; J44.9 Chronic obstructive pulmonary disease, unspecified; G89.29 Other chronic pain; M54.9 Dorsalgia, unspecified; F12.10 Cannabis abuse, uncomplicated; F15.10 Other stimulant abuse, uncomplicated; Z88.0 Allergy status to penicillin; Z79.899 Other long term (current) drug therapy
CPT/HCPCS: 73030; 93005; 96372; 99283; J1885